=== PATIENT | female | born 1965 | race Caucasian/White ===

== ENCOUNTER 2023-07-03 16:42 | Emergency (ER) | payer MEDICAID ==
[2023-07-03 18:49] LABS: EOSINOPHILS PERCENT AUTO 2.9 % (0.0-5.4); HEMATOCRIT 33.8 % (34.3-46.0); HEMOGLOBIN 11.1 g/dL (11.2-15.5); IMMATURE GRAN ABSOLUTE AUTO 0.03 K/uL (0.00-0.23); IMMATURE GRAN PERCENT AUTO 0.3 % (0.0-0.7); LYMPHOCYTES ABSOLUTE AUTO 3.16 K/uL (0.8-3.3); LYMPHOCYTES PERCENT AUTO 30.7 % (11.4-47.7); MEAN CORPUSCULAR HEMOGLOBIN 29.6 pg (31.6-35.5); MEAN CORPUSCULAR HGB CONC 32.8 g/dL (31.6-35.5); MEAN CORPUSCULAR VOLUME 90.1 fL (81.4-99.0); MONOCYTES PERCENT AUTO 6.8 % (3.3-12.6); NEUTROPHILS ABSOLUTE AUTO 5.99 K/uL (1.0-7.6); NEUTROPHILS PERCENT AUTO 58.3 % (40.0-78.1); PLATELET COUNT,PLT 487 K/uL (130-375); RED BLOOD CELL COUNT 3.75 M/uL (3.77-5.24); WHITE BLOOD CELL COUNT,WBC 10.3 K/uL (3.2-11.0)
[2023-07-03 19:04] LABS: ANION GAP 14.7 mmol/L (5.0-14.0); CALCIUM 7.8 mg/dL (8.5-10.1); CREATININE 0.9 mg/dL (0.6-1.0); EST CRCL DRUG DOSING (CG) 67.87 mL/min; POTASSIUM,K 3.7 mmol/L (3.6-5.2)
[2023-07-03 20:39] VITALS: BP 156/74; PULSE 62
== END 2023-07-03 21:00 | disposition home or self-care (01) ==
LOC: JP.ED 16:42
DX: I89.0 Lymphedema, not elsewhere classified (principal); E20.9 Hypoparathyroidism, unspecified
CPT/HCPCS: 36415; 80048; 85025; 85379; 93970; 99283; 99284